=== PATIENT | female | born 1945 | race Caucasian/White ===

== ENCOUNTER 2018-06-15 13:39 | Inpatient (IN) | payer OTHER ==
[~2018-06-15] VITALS: Ht 165.1 cm; Wt 90.7 kg
[2018-06-15] MEDS ORDERED: TOPROL XL25 MG PO (13:56)
[2018-06-15] MEDS ORDERED: CARDURA8 MG PO (13:56)
== END 2018-06-22 20:23 | disposition left against medical advice (07) | DRG 689 ==
LOC: ER 13:39 → EDBD 16:44 → ER 16:44 → SEC-K 06-16 22:16 → SURH 06-16 22:16 → MEDI 06-17 17:23 → SURH 06-17 17:23
PROC: BW40ZZZ Ultrasonography of Abdomen (ICD-10-PCS; principal; 2018-06-16)
PROC: BW25Y0Z Computerized Tomography (CT Scan) of Chest, Abdomen and Pelvis using Other Contrast, Unenhanced and Enhanced (ICD-10-PCS; 2018-06-16)
PROC: 4A033R1 Measurement of Arterial Saturation, Peripheral, Percutaneous Approach (ICD-10-PCS; 2018-06-18)
PROC: 4A12X4Z Monitoring of Cardiac Electrical Activity, External Approach (ICD-10-PCS; 2018-06-18)
PROC: 0TJB8ZZ Inspection of Bladder, Via Natural or Artificial Opening Endoscopic (ICD-10-PCS; 2018-06-18)
PROC: B246ZZZ Ultrasonography of Right and Left Heart (ICD-10-PCS; 2018-06-19)
PROC: 3E0F7GC Introduction of Other Therapeutic Substance into Respiratory Tract, Via Natural or Artificial Opening (ICD-10-PCS; 2018-06-19)
DX: N13.6 Pyonephrosis (principal); A41.51 Sepsis due to Escherichia coli [E. coli]; R65.20 Severe sepsis without septic shock; K52.89 Other specified noninfective gastroenteritis and colitis; N17.8 Other acute kidney failure; E86.0 Dehydration; I10 Essential (primary) hypertension; E11.9 Type 2 diabetes mellitus without complications; J45.998 Other asthma; I48.0 Paroxysmal atrial fibrillation